=== PATIENT | male | born 1970 | race Caucasian/White ===

== ENCOUNTER 2018-05-07 17:37 | Emergency (ER) | payer OTHER ==
[~2018-05-07] VITALS: Ht 182.9 cm; Wt 106.6 kg
[2018-05-07 18:24] LABS: BASOPHILS # (AUTO) 0.02 x10^3/uL (0-0.1); BASOPHILS % (AUTO) 0 % (0-1); EOSINOPHILS # (AUTO) 0.22 x10^3/uL (0-0.4); EOSINOPHILS % (AUTO) 2 % (1-7); LYMPHOCYTES # (AUTO) 2.79 x10^3/uL (1-3.4); LYMPHOCYTES % (AUTO) 29 % (22-44); MD NO; MEAN CORPUSCULAR HEMOGLOBIN 31.5 pg (27.5-34.5); MEAN CORPUSCULAR HGB CONC 34.3 g/dL (33.2-36.2); MEAN CORPUSCULAR VOLUME 91.8 fL (81-97); MEAN PLATELET VOLUME 8.7 fL (7.4-10.4); MONOCYTES # (AUTO) 0.81 x10^3/uL (0.2-0.8); MONOCYTES % (AUTO) 8 % (2-9); NEUTROPHILS % (AUTO) 60 % (42-75); PLATELET COUNT 233 x10^3/uL (130-400); RED BLOOD COUNT 4.24 x10^6/uL (4.38-5.82); RED CELL DISTRIBUTION WIDTH 14.2 % (9.4-14.8)
[2018-05-07 18:30] LABS: ALBUMIN 2.9 g/dL (3.4-5.0); ANION GAP 9 mmol/L (5-15); CALCIUM 8.4 mg/dL (8.5-10.1); CHLORIDE 113 mmol/L (98-107)
[2018-05-07 18:30] LABS: MICROSCOPIC AUTO
[2018-05-07 18:34] LABS: ALANINE AMINOTRANSFERASE 19 U/L (12-78); ALKALINE PHOSPHATASE 50 U/L (45-117); BILIRUBIN,TOTAL 0.2 mg/dL (0.2-1.0); CREATININE 3.07 mg/dL (0.7-1.3); TOTAL PROTEIN 7.1 g/dL (6.4-8.2)
[2018-05-07] MEDS ORDERED: SODIUM CHLORIDE 0.9% 1,000ML IVBOLUS ONE (19:00)
[2018-05-07 19:05] LABS: CULTURE INDICATED? YES
[2018-05-07 19:51] VITALS: BP 167/98
== END 2018-05-07 19:53 | disposition home or self-care (01) ==
LOC: ED 19:30
DX: R31.29 Other microscopic hematuria (principal); N17.9 Acute kidney failure, unspecified; I10 Essential (primary) hypertension
CPT/HCPCS: 36415; 80053; 81001; 85025; 87086; 99284; J7030

== ENCOUNTER → 2018-08-18 | Outpatient (CLI) | payer OTHER ==
[~2018-08-18] MED LIST: AMLO10TA6 PO; CHLO25TA PO; HUMIRA; LOSA25TA25 PO; PROBIOTIC PO; TRAM50TA2 PO; XARELTO PO
[2018-08-18 16:13] LABS: ALANINE AMINOTRANSFERASE 28 U/L (12-78); ALBUMIN 3.4 g/dL (3.4-5.0); ANION GAP 8 mmol/L (5-15); CALCIUM 8.6 mg/dL (8.5-10.1); CHLORIDE 109 mmol/L (98-107); CREATININE 1.68 mg/dL (0.7-1.3)
[2018-08-18 16:15] LABS: ALKALINE PHOSPHATASE 60 U/L (45-117); BILIRUBIN,TOTAL 0.3 mg/dL (0.2-1.0); TOTAL PROTEIN 7.2 g/dL (6.4-8.2)
== END | disposition home or self-care (01) ==
LOC: STAR 15:18
PROVIDERS: ATTEND Surgery
DX: Z01.818 Encounter for other preprocedural examination (principal); K40.20 Bilateral inguinal hernia, without obstruction or gangrene, not specified as recurrent; K42.9 Umbilical hernia without obstruction or gangrene
CPT/HCPCS: 36415; 80053

== ENCOUNTER 2018-08-25 12:03 | Day surgery (SDC) | payer OTHER ==
[2018-08-18 16:03] VITALS: BP 146/90
[~2018-08-25] VITALS: Ht 182.9 cm; Wt 109.8 kg
[~2018-08-25 12:03] MED LIST changes: -AMLO10TA6 PO; +AMLO10TA8 PO; +BUPIVACAINE/PF-EPI 0.5% 1:200K ONE
[2018-08-25] MEDS ORDERED: LACTATED RINGERS 1,000 ML IV SCH ×2 (12:45→20:30)
[2018-08-25] MEDS ORDERED: GABAPENTIN 300 MG CAPSULE PO ONE (13:00)
[2018-08-25] MEDS ORDERED: ACETAMINOPHEN 500 MG TABLET PO ONE (13:00)
[2018-08-25] MEDS ORDERED: RIVA10TA2 PO (13:06)
[2018-08-25] MEDS ORDERED: TRAZ50TA66 PO (13:06)
[2018-08-25] MEDS ORDERED: FENTANYL PF 250 MCG/5ML ONE (13:08)
[2018-08-25] MEDS ORDERED: MIDAZOLAM 1 MG/ML, 2ML ONE (13:08)
[2018-08-25] MEDS ORDERED: PROPOFOL 10 MG/ML, 20ML ONE (13:11)
[2018-08-25] MEDS ORDERED: GLYCOPYRROLATE 0.2MG/1ML, 5ML ONE (13:11)
[2018-08-25] MEDS ORDERED: NEOSTIGMINE 1 MG/ML, 10ML ONE (13:11)
[2018-08-25] MEDS ORDERED: ROCURONIUM 10MG/ML,5ML ONE (13:11)
[2018-08-25] MEDS ORDERED: CEFAZOLIN 1,000 MG ONE (13:11)
[2018-08-25] MEDS ORDERED: hydrALAzine 20 MG/ML, 1ML IV PRN (15:00)
[2018-08-25] MEDS ORDERED: ONDANSETRON ODT 8 MG PO PRN (15:00)
[2018-08-25] MEDS ORDERED: PROMETHAZINE 25 MG/ML, 1ML IV PRN (15:00)
[2018-08-25] MEDS ORDERED: ONDANSETRON 2MG/ML, 2ML IV PRN (15:00)
[2018-08-25] MEDS ORDERED: PROMETHAZINE 25 MG/ML, 1ML IM PRN ×2 (15:00)
[2018-08-25] MEDS ORDERED: PROMETHAZINE 12.5 MG SUPP PR PRN (15:00)
[2018-08-25] MEDS ORDERED: LABETALOL 5MG/ML, 20ML IV PRN (15:00)
[2018-08-25] MEDS ORDERED: OXYcodone 5 MG/5 ML ORAL.SOL UDC PO PRN ×2 (15:00→20:30)
[2018-08-25] MEDS ORDERED: PROMETHAZINE 25 MG SUPP PR PRN (15:00)
[2018-08-25] MEDS ORDERED: HYDROmorphone 2 MG/ML, 1ML IVPush PRN ×2 (15:00→20:00)
[2018-08-25] MEDS ORDERED: FENTANYL PF 100 MCG/2ML IV PRN (15:00)
[2018-08-25] MEDS ORDERED: FENTANYL PF 100 MCG/2ML ONE ×2 (15:34→15:45)
[2018-08-25] MEDS ORDERED: MEPERIDINE/PF 25MG/ML,1ML ONE ×2 (16:28→16:56)
[2018-08-25] MEDS ORDERED: OXYcodone 5 MG/5 ML ORAL.SOL UDC ONE (16:28)
[2018-08-25] MEDS: MEPERIDINE/PF 25MG/0.5ML IVPush PRN ×2 (16:30→16:50)
[2018-08-25] MEDS: MORPHINE SULFATE 4 MG/ML, 1ML IVPush PRN ×2 (16:40→16:45)
[2018-08-25] MEDS ORDERED: MORPHINE SULFATE 4 MG/ML, 1ML ONE ×2 (16:41→16:54)
[2018-08-25] MEDS ORDERED: KETOROLAC 30 MG/1 ML ONE (16:54)
[2018-08-25] MEDS ORDERED: LORazepam 2 MG/ML, 1ML ONE (17:00)
[2018-08-25] MEDS ORDERED: LORazepam 2 MG/ML, 1ML IVPush PRN (17:30)
[2018-08-25 18:52] VITALS: BP 142/85
[2018-08-25] MEDS ORDERED: HYDROmorphone 2 MG/ML, 1ML ONE (19:44)
[2018-08-25] MEDS ORDERED: PLEASE ENTER ALLERGIES MC SCH (20:00)
[2018-08-25] MEDS ORDERED: ONDANSETRON 2MG/ML, 2ML IVPush PRN (20:30)
[2018-08-25] MEDS ORDERED: OXYcodone/APAP 5/325MG TABLET PO PRN (20:30)
[2018-08-25] MEDS ORDERED: KETOROLAC 30 MG/1 ML IV PRN (20:30)
[2018-08-25] MEDS ORDERED: DIPHENHYDRAMINE 50 MG/ML, 1ML IVPush PRN (20:30)
[2018-08-25] MEDS ORDERED: HYDROmorphone 2 MG/ML, 1ML IV PRN (20:30)
== END 2018-08-25 23:15 | disposition home or self-care (01) ==
LOC: OUT 12:03 → 4NOR 18:06 → OUT 23:15
PROVIDERS: ATTEND Surgery
DX: K40.20 Bilateral inguinal hernia, without obstruction or gangrene, not specified as recurrent (principal); K42.0 Umbilical hernia with obstruction, without gangrene; I10 Essential (primary) hypertension; Z98.890 Other specified postprocedural states; E78.5 Hyperlipidemia, unspecified; Z87.39 Personal history of other diseases of the musculoskeletal system and connective tissue; Z87.891 Personal history of nicotine dependence; Z72.89 Other problems related to lifestyle
CPT/HCPCS: 49587; 49650; C1781; J0690; J1170; J2060; J2175; J2250; J2704; J2710; J3010; J3490; J7120; S2900; G0378